=== PATIENT | female | born 1990 | race Caucasian/White ===

== ENCOUNTER 2018-03-03 00:54 | Emergency (ER) | payer OTHER | END 2018-03-03 03:37 | disposition home or self-care (01) | LOC: FTE 00:54 | DX: O99.89 Other specified diseases and conditions complicating pregnancy, childbirth and the puerperium (principal); M54.5 Low back pain; F17.210 Nicotine dependence, cigarettes, uncomplicated; O99.332 Smoking (tobacco) complicating pregnancy, second trimester; Z3A.15 15 weeks gestation of pregnancy | CPT/HCPCS: 76805; 99284-25 ==

== ENCOUNTER 2018-07-19 05:10 | Outpatient (CLI) | payer OTHER ==
[2018-07-19 05:50] LABS: ADD UMIC NO; UR ASCORBIC ACID NEGATIVE (NEGATIVE); UR BILIRUBIN (Dip) NEGATIVE (NEGATIVE); UR BLOOD (Dip) NEGATIVE (NEGATIVE); UR CLARITY CLEAR (CLEAR); UR COLOR YELLOW (YELLOW); UR GLUCOSE (Dip) NEGATIVE (NEGATIVE); UR KETONES (Dip) NEGATIVE (NEGATIVE); UR LEUKOCYTE ESTERASE (Dip) NEGATIVE Leu/ul (NEGATIVE); UR NITRITE (Dip) NEGATIVE (NEGATIVE); UR SPECIFIC GRAVITY (Dip) 1.014 (1.003-1.030); UR TOTAL PROTEIN (Dip) NEGATIVE (NEGATIVE); UR UROBILINOGEN (Dip) NEGATIVE (NEGATIVE)
[2018-07-19] MEDS: TERBUTALINE 1 MG/ML INJ SC (06:40)
== END 2018-07-19 07:50 | disposition home or self-care (01) ==
LOC: OBT 05:10 → L-D 05:10 → OBT 07:50
DX: O36.8130 Decreased fetal movements, third trimester, not applicable or unspecified (principal); Z3A.38 38 weeks gestation of pregnancy
CPT/HCPCS: 76817; 76818; 81003; 87086